=== PATIENT | male | born 1995 | race Caucasian/White ===

== ENCOUNTER 2017-06-03 07:45 | Emergency (ER) | payer OTHER ==
[~2017-06-03] VITALS: Ht 188 cm; Wt 72.6 kg
--- NOTE | 2017-06-03 08:14 | PHYS DOC ---
Past History Past Medical History: No Pertinent History Past Surgical History: No Surgical History Smoking: Non-smoker Additional Smoking Information: [employer] Alcohol Use: Occasionally Drug Use: None Adult General Chief Complaint Chief Complaint: DIARRHEA HPI HPI 21-year-old male patient complaining of more than 15 episodes of nonbloody diarrhea since 0 last night with lower abdominal cramping pain associated with subjective fever and generalized weakness. Patient rated his pain 2 or 3/ 10. Patient denies nausea, vomiting, urinary symptom, sick contact. Patient states maybe he had a bad food last night. Review of Systems Review of Systems Constitutional: Reports subjective fever and chills] Eyes: Denies change in visual acuity, redness, or eye pain [] HENT: Denies nasal congestion or sore throat [] Respiratory: Denies cough or shortness of breath [] Cardiovascular: No additional information not addressed in HPI [] GI: Denies nausea, vomiting, bloody stools, reports abdominal pain and diarrhea [] : Denies dysuria or hematuria [] Musculoskeletal: Denies back pain or joint pain [] Integument: Denies rash or skin lesions [] Neurologic: Denies headache, focal weakness or sensory changes [] Endocrine: Denies polyuria or polydipsia [] All other systems were reviewed and found to be within normal limits, except as documented in this note. Allergies Allergies Allergies Coded Allergies Type Severity Reaction Last Updated Verified No Known Drug Allergies 06/03/17 No Physical Exam Physical Exam Constitutional: Well developed, well nourished,mild distress, non-toxic appearance. [] HENT: Normocephalic, atraumatic, bilateral external ears normal, oropharynx dry , no oral exudates, nose normal. [] Eyes: PERRLA, EOMI, conjunctiva normal, no discharge. [] Neck: Normal range of motion, no tenderness, supple, no stridor. [] Cardiovascular:Heart rate regular rhythm, no murmur [] Lungs & Thorax: Bilateral breath sounds clear to auscultation [] Abdomen: Bowel sounds normal, soft, no tenderness, no masses, no pulsatile masses. [] Skin: Warm, dry, no erythema, no rash. [] Back: No tenderness, no CVA tenderness. [] Extremities: No tenderness, no cyanosis, no clubbing, ROM intact, no edema. [] Neurologic: Alert and oriented X 3, normal motor function, normal sensory function, no focal deficits noted. [] Psychologic: Affect normal, judgement normal, mood normal. [] Current Patient Data Vital Signs Vital Signs Date Time Temp Pulse Resp B/P (MAP) Pulse Ox O2 Delivery O2 Flow Rate FiO2 06/03/17 07:56 98.3 94 16 98 Room Air EKG EKG [] Radiology/Procedures Radiology/Procedures [] Course & Med Decision Making Course & Med Decision Making Pertinent Labs reviewed. (See chart for details) Evaluation of patient in ER showed 21-year-old male patient with multiple episodes of nonbloody diarrhea since last night. Patient had unremarkable physical exam except for mild dry oral mucosa. Patient had 1 episode of diarrhea while he was in ER. Patient treated with IV fluids and Imodium and felt better. Patient tolerated oral intake. Patient instructed to take liquid diet for the next 24 hours and follow with his primary care physician in 2 or 3 days. [] Dragon Disclaimer Dragon Disclaimer This electronic medical record was generated, in whole or in part, using a voice recognition dictation system. Departure Departure: Impression: Primary Impression: Viral diarrhea Disposition: HOME, SELF-CARE (at 9:15) Condition: IMPROVED Referrals: PCP,NO (PCP) Patient Instructions: Diarrhea, Diarrhea, [id number] Additional Instructions: Follow-up with your primary care physician in 2 or 3 days Take liquid diet for 24 hours Return to ER if not getting better MELONIE LUCAS MD Jun 03, 2017 08:14
[2017-06-03] MEDS ORDERED: 0.9 % SODIUM CHLORIDE 10 ML DISP.SYRIN. IV PRN (08:15)
[2017-06-03] MEDS ORDERED: IV NORMAL SALINE 1,000ML 1,000 ML IV SCH (08:30)
[2017-06-03 08:34] LABS: BASO # 0.1 x10^3/uL (0.0-0.2); BASO % 1 % (0-3); EOS # 0.1 x10^3/uL (0.0-0.7); EOS % 1 % (0-3); HEMATOCRIT 43.9 % (39.0-53.0); LYMPH # 1.8 x10^3/uL (1.0-4.8); LYMPH % 15 % (24-48); MEAN CORPUSCULAR HEMOGLOBIN 30 pg (25-35); MEAN CORPUSCULAR HGB CONC 34 g/dL (31-37); MEAN CORPUSCULAR VOLUME 88 fL (79-100); MONO % 8 % (0-9); NEUT # 9.1 x10^3uL (1.8-7.7); NEUT % 75 % (31-73); PLATELET COUNT 246 x10^3/uL (140-400); RED BLOOD COUNT 5.01 x10^6/uL (4.30-5.70); RED CELL DISTRIBUTION WIDTH 12.7 % (11.5-14.5); WHITE BLOOD COUNT 12.1 x10^3/uL (4.0-11.0)
[2017-06-03 08:44] LABS: BACTERIA,URINE 0 /HPF (0-FEW); BILIRUBIN,URINE NEG (NEG); CLARITY,URINE CLEAR; COLOR,URINE YELLOW; GLUCOSE,URINE NEG (NEG); NITRITE,URINE NEG (NEG); RBC,URINE 0 /HPF (0-2); UROBILINOGEN,URINE 0.2 mg/dL (0.2 mg/dL); WBC,URINE RARE /HPF (0-4)
[2017-06-03 08:45] LABS: SQUAMOUS EPITHELIAL CELL,UR OCC /LPF
[2017-06-03 08:48] LABS: ALBUMIN/GLOBULIN RATIO 1.2 (1.0-1.7); CALCIUM 8.9 mg/dL (8.5-10.1); GFR 95.3; POTASSIUM 4.6 mmol/L (3.5-5.1); TOTAL BILIRUBIN 0.6 mg/dL (0.2-1.0); TOTAL PROTEIN 7.3 g/dL (6.4-8.2)
[2017-06-03 09:15] VITALS: BP 137/74
[2017-06-03] MEDS ORDERED: LOPERAMIDE 2 MG CAPSULE PO ONE (09:15)
== END 2017-06-03 09:21 | disposition home or self-care (01) ==
LOC: ER 07:45
DX: A08.4 Viral intestinal infection, unspecified (principal); F17.220 Nicotine dependence, chewing tobacco, uncomplicated
CPT/HCPCS: 36415; 80053; 81001; 83690; 85025; 96360; 99284-25; J7030

== ENCOUNTER 2018-04-12 03:53 | Emergency (ER) | payer OTHER ==
[~2018-04-12] VITALS: Ht 188 cm; Wt 72.6 kg
[2018-04-12] MEDS ORDERED: ONDANSETRON ODT 4 MG TAB.RAPDIS PO ONE (04:15)
[2018-04-12] MEDS ORDERED: DICYCLOMINE HCL 20 MG TABLET ONE (04:23)
[2018-04-12 04:25] VITALS: BP 139/70
[2018-04-12] MEDS ORDERED: DICY20TA3 PO (04:25)
[2018-04-12] MEDS ORDERED: ONDA4TAB7 PO (04:25)
--- NOTE | 2018-04-12 04:27 | PHYS DOC ---
Adult General Chief Complaint Chief Complaint Diarrhea HPI HPI 22 years old male presented to the emergency department with diarrhea for 2 days described as watery loose diarrhea, associate with nausea no vomiting, abdominal cramps no fever no chills no urgency no frequency Review of Systems Review of Systems Constitutional: Denies fever or chills [] Eyes: Denies change in visual acuity, redness, or eye pain [] HENT: Denies nasal congestion or sore throat [] Respiratory: Denies cough or shortness of breath [] Cardiovascular: No additional information not addressed in HPI [] GI: Negative other than mentioned in history of present illness : Denies dysuria or hematuria [] Musculoskeletal: Denies back pain or joint pain [] Integument: Denies rash or skin lesions [] Neurologic: Denies headache, focal weakness or sensory changes [] Endocrine: Denies polyuria or polydipsia [] All other systems were reviewed and found to be within normal limits, except as documented in this note. Current Medications Current Medications Current Medications Medications (Trade) Dose Ordered Sig/Elvira Start Time Stop Time Status Last Admin Dose Admin Dicyclomine HCl (Bentyl) 20 mg STK-MED ONCE 04/12/18 04:23 04/12/18 04:24 DC Ondansetron HCl (Zofran Odt) 4 mg 1X ONCE 04/12/18 04:15 04/12/18 04:17 DC 04/12/18 04:14 4 MG Allergies Allergies Allergies Coded Allergies Type Severity Reaction Last Updated Verified No Known Drug Allergies 06/03/17 No Physical Exam Physical Exam Constitutional: Well developed, well nourished, no acute distress, non-toxic appearance. [] HENT: Normocephalic, atraumatic, bilateral external ears normal, oropharynx moist, no oral exudates, nose normal. [] Eyes: PERRLA, EOMI, conjunctiva normal, no discharge. [] Neck: Normal range of motion, no tenderness, supple, no stridor. [] Cardiovascular:Heart rate regular rhythm, no murmur [] Lungs & Thorax: Bilateral breath sounds clear to auscultation [] Abdomen: Bowel sounds normal, soft, no tenderness, no masses, no pulsatile masses. [] Skin: Warm, dry, no erythema, no rash. [] Back: No tenderness, no CVA tenderness. [] Extremities: No tenderness, no cyanosis, no clubbing, ROM intact, no edema. [] Neurologic: Alert and oriented X 3, normal motor function, normal sensory function, no focal deficits noted. [] Psychologic: Affect normal, judgement normal, mood normal. [] Current Patient Data Vital Signs Vital Signs Date Time Temp Pulse Resp B/P (MAP) Pulse Ox O2 Delivery O2 Flow Rate FiO2 04/12/18 03:59 98.0 95 20 97 Room Air EKG EKG [] Radiology/Procedures Radiology/Procedures [] Course & Med Decision Making Course & Med Decision Making Pertinent Labs and Imaging studies reviewed. (See chart for details) [] Final Impression Final Impression [] Problems: (1) Gastroenteritis Dragon Disclaimer Dragon Disclaimer This electronic medical record was generated, in whole or in part, using a voice recognition dictation system. MARISOL GOODMAN MD Apr 12, 2018 04:27
[2018-04-12] MEDS ORDERED: DICYCLOMINE HCL 20 MG TABLET PO ONE (04:30)
== END 2018-04-12 04:30 | disposition home or self-care (01) ==
LOC: ER 03:53
DX: K52.9 Noninfective gastroenteritis and colitis, unspecified (principal)
CPT/HCPCS: 99283; Q0162

== ENCOUNTER 2018-06-25 03:18 | Emergency (ER) | payer OTHER ==
[~2018-06-25] VITALS: Ht 185.4 cm; Wt 74.8 kg
[~2018-06-25 03:18] MED LIST: DICY20TA3 PO; ONDA4TAB7 PO
[2018-06-25 03:25] VITALS: BP 136/79
--- NOTE | 2018-06-25 03:36 | ED.ADGEN ---
Past History Past Medical History: No Pertinent History Past Surgical History: No Surgical History Smoking: Non-smoker Additional Smoking Information: pt reports using e-cig Alcohol Use: Occasionally Drug Use: None Adult General Chief Complaint Chief Complaint ankle HPI HPI Plan 2 years old presented emergency department with the left ankle pain after fall in snow morning Review of Systems Review of Systems Constitutional: Denies fever or chills [] Eyes: Denies change in visual acuity, redness, or eye pain [] HENT: Denies nasal congestion or sore throat [] Respiratory: Denies cough or shortness of breath [] Cardiovascular: No additional information not addressed in HPI [] GI: Denies abdominal pain, nausea, vomiting, bloody stools or diarrhea [] : Denies dysuria or hematuria [] Musculoskeletal: Denies back pain Integument: Denies rash or skin lesions [] Neurologic: Denies headache, focal weakness or sensory changes [] Endocrine: Denies polyuria or polydipsia [] All other systems were reviewed and found to be within normal limits, except as documented in this note. Allergies Allergies Allergies Coded Allergies Type Severity Reaction Last Updated Verified No Known Drug Allergies 06/03/17 No Physical Exam Physical Exam Constitutional: Well developed, well nourished, no acute distress, non-toxic appearance. [] HENT: Normocephalic, atraumatic, bilateral external ears normal, oropharynx moist, no oral exudates, nose normal. [] Eyes: PERRLA, EOMI, conjunctiva normal, no discharge. [] Neck: Normal range of motion, no tenderness, supple, no stridor. [] Cardiovascular:Heart rate regular rhythm, no murmur [] Lungs & Thorax: Bilateral breath sounds clear to auscultation [] Abdomen: Bowel sounds normal, soft, no tenderness, no masses, no pulsatile masses. [] Skin: Warm, dry, no erythema, no rash. [] Back: No tenderness, no CVA tenderness. [] Extremities: + tenderness, no cyanosis, no clubbing, ROM intact, no edema. [] Neurologic: Alert and oriented X 3, normal motor function, normal sensory function, no focal deficits noted. [] Psychologic: Affect normal, judgement normal, mood normal. [] Current Patient Data Vital Signs Vital Signs Date Time Temp Pulse Resp B/P (MAP) Pulse Ox O2 Delivery O2 Flow Rate FiO2 06/25/18 03:25 97.9 100 20 99 Room Air EKG EKG [] Radiology/Procedures Radiology/Procedures [] Course & Med Decision Making Course & Med Decision Making Pertinent Labs and Imaging studies reviewed. (See chart for details) [] Final Impression Final Impression [] Problems: (1) Left ankle sprain Dragon Disclaimer Dragon Disclaimer This electronic medical record was generated, in whole or in part, using a voice recognition dictation system. MARISOL GOODMAN MD Jun 25, 2018 03:36
[2018-06-25] MEDS ORDERED: HYDROcodone/APAP 5/325MG 1 TAB TABLET PO ONE (04:00)
[2018-06-25] MEDS ORDERED: KETOROLAC 60 MG/2 ML VIAL. IM ONE (04:00)
--- NOTE | 2018-06-25 08:18 | RAD ---
Left ankle radiograph 06/25/2018 3:40 AM INDICATION: Injury to left ankle with pain at the left malleolus. COMPARISON: None available. TECHNIQUE: 3 views the left ankle are provided. FINDINGS: There is no acute fracture or dislocation. Tibial plafond and talar dome are intact. Ankle mortise is congruent. Bone mineralization is within normal limits. Joint spaces are maintained. Mild soft tissue swelling is identified along the posterior tibiotalar joint space. There is no soft tissue gas or osseous erosion. IMPRESSION: No acute fracture or dislocation. Mild soft tissue swelling is identified along the posterior tibiotalar joint space. Consideration may be given for ligamentous injury. Electronically signed by: Spring Mc MD (06/25/2018 8:15 AM) [id number]
== END 2018-06-25 03:49 | disposition home or self-care (01) ==
LOC: ER 03:18
DX: S93.402A Sprain of unspecified ligament of left ankle, initial encounter (principal); F17.290 Nicotine dependence, other tobacco product, uncomplicated; W00.0XXA Fall on same level due to ice and snow, initial encounter; Y93.89 Activity, other specified; Y92.89 Other specified places as the place of occurrence of the external cause; Y99.8 Other external cause status
CPT/HCPCS: 73610; 96372; 99283; J1885